=== PATIENT | female | born 1980 | race African-American/Black ===

== ENCOUNTER 2021-10-15 20:46 | Emergency (ER) | payer BC ==
[~2021-10-15] VITALS: Ht 152.4 cm; Wt 73.9 kg
[2021-10-15] MEDS ORDERED: MELOXICAM15 MG PO (21:29)
[2021-10-15] MEDS ORDERED: KETOROLAC TROMETHAMINE 30 MG/ML VIAL IM STA (21:32)
[2021-10-15] MEDS ORDERED: KETOROLAC TROMETHAMINE 30 MG/ML VIAL ONE (21:40)
[2021-10-15] MEDS ORDERED: DEXAMETHASONE SOD PHOS 10 MG/1 ML VIAL ONE (21:40)
[2021-10-15] MEDS ORDERED: DEXAMETHASONE SOD PHOS 10 MG/1 ML VIAL IM ONE (21:45)
== END 2021-10-15 22:07 | disposition home or self-care (01) ==
LOC: ER 21:04
DX: M54.12 Radiculopathy, cervical region (principal); I10 Essential (primary) hypertension
CPT/HCPCS: 93005; 99282; J1100; J1885